=== PATIENT | female | born 1985 | race Caucasian/White ===

== ENCOUNTER 2022-05-09 09:26 | Outpatient (CLI) | payer OTHER, SELFPAY ==
--- NOTE | 2022-05-09 10:15 | CRLHL7_ITS ---
For Patients: As a result of the Century Cures Act, medical imaging exams and procedure reports are released immediately into your electronic medical record. You may view this report before your referring provider. If you have questions, please contact your health care provider. INDICATION: Evaluate anatomy. COMPARISON: none TECHNIQUE: Real time cuba scale imaging of the fetus was performed as well as color Doppler analysis of the umbilical vessels. FINDINGS: Sonographic imaging demonstrates a single living intrauterine gestation. Fetus demonstrates a regular cardiac rate of 136 beats per minute. Fetus has a vertex oblique position. The placenta lies anteriorly without evidence of placenta previa. The edge of the placenta is located 4.4 cm from the internal cervical os. Amniotic fluid volume appears normal. Single deepest vertical pocket: 5.8 cm. The cervix is closed and measures 6.0 cm in length. The composite ultrasound gestational age is calculated at 21 weeks 1 day with an estimated sonographic due date of 09/18/2022. The estimated weight is 401 grams which lies at the 76th %. The following biometric measurements were obtained: Biparietal diameter: 4.9 cm/20 weeks 6 days 60th% Head circumference: 18.3 cm/20 weeks 40 44th% Abdominal circumference: 16.4 cm/21 weeks 3 days 74th% Femur length: 3.5 cm/20 week 6 days 51st% The HC/AC ratio measures: 1.11 range (1.06-1.25) On anatomic survey, there is a normal appearance of the cerebral ventricles, cavum septi pellucidi, cisterna magna and cerebellum. The nose, lips, and facial profile appear normal. The cervical, thoracic and lumbar spine are well visualized and appear normal. There is a normal four-chamber heart view and the left and right ventricular outflow tracts appear normal. The diaphragm and stomach appear normal. The kidneys and bladder also appear normal. There is a normal three-vessel cord and cord insertion site. The four extremities appear normal. IMPRESSION: Normal OB ultrasound exam with concordance of clinical and sonographic dating. No intrinsic abnormalities noted on anatomic survey. Dictated by Winston Reese MD @ 05/09/2022 11:34:30 AM (Electronically Signed)
== END 2022-05-09 09:27 | disposition home or self-care (01) ==
PROVIDERS: Visit Provider Advanced Practice Midwife
DX: Z34.92 Encounter for supervision of normal pregnancy, unspecified, second trimester (principal); Z3A.20 20 weeks gestation of pregnancy
CPT/HCPCS: 76805

== ENCOUNTER 2022-07-02 09:46 | Outpatient (CLI) | payer OTHER, SELFPAY ==
[2022-07-03 19:50] LABS: Rapid Plasma Reagin (RPR) Non Reactive (Non Reactive)
== END 2022-07-02 09:47 | disposition home or self-care (01) ==
LOC: NFLDREF 09:47
PROVIDERS: Visit Provider Advanced Practice Midwife
DX: Z34.93 Encounter for supervision of normal pregnancy, unspecified, third trimester (principal); Z3A.28 28 weeks gestation of pregnancy
CPT/HCPCS: 86592

== ENCOUNTER 2022-08-27 10:42 | Outpatient (CLI) | payer OTHER, SELFPAY ==
[2022-08-28 13:22] LABS: Strep B DNA Probe POSITIVE (Negative); Strep B Pen/Amox Allergy No
== END 2022-08-27 10:43 | disposition home or self-care (01) ==
PROVIDERS: Visit Provider Advanced Practice Midwife
DX: Z34.93 Encounter for supervision of normal pregnancy, unspecified, third trimester (principal); Z3A.36 36 weeks gestation of pregnancy
CPT/HCPCS: 87081; 87653

== ENCOUNTER 2022-09-16 06:55 | Inpatient (IN) | payer OTHER, SELFPAY ==
[2022-09-16] VITALS (131 sets, daily range): BP systolic 79–133; BP diastolic 43–80; PULSE 48–134; RESP 16–18; TEMP 36.4–36.8; O2SAT 92–100; BMI 30.7
--- NOTE | 2022-09-16 07:48 | W.PM.LDBA ---
Subjective History of Present Illness Time Seen by Provider: 07:48 Date Seen: 09/16/22 Narrative: Sintia is being admitted to Labor and Delivery for IOL r/t history of DVT and heprin treatment. Pt's last dose of heprin was 24 hours ago. She is a 36 year old at 39 1/7 weeks gestation. Her full history and physical was dictated by Chantal Rodriguez CNM on 09/10/22. Please see this for details. Sintia is supported by her Franco. She is planning an epidural. Discussed options for cervidil or cytotec induction, pt agreeable to cytotec IOL. Encouraged ambulation, position changes and Labor Warm Up to promote optimal position and encourage physiologic labor and . Discussed TXA prophylaxis to decrease risk of PP hemorrhage, pt agreeable. Questions elicited and answered to pt's satisfaction. OB Problem list: 1. History of DVT, 2 months post leg surgery while on OCP's Started on Lovenox 40mg in early , will switch to Heparin at 36 weeks (prefers to have 1 week at a time with refills) Heparin ordered, BID. Starting at 36 weeks, 08/28/22. Hx of itching started after she started heparin. Restart Lovenox 12-24 hours post delivery No perinatology consult, declines (Was seeing OB at prior practice and had same plan with previous pregnancies) IOL recommended at 39 weeks, no additional monitoring indicated with hx of DVT: planning on 09/16/2022 2. History of Cholestasis with previous Sx started about 37 weeks, intense itching (last ) 3. UTI during , treated at 9 weeks [place]YN[place] 03/14/22, results not included in tx records 4. Pap 07/2021 NILM, +HPV Plan repeat 5. Hx vaccum assisted delivery d/t maternal fatique after >4 hours of pushing 6. GBS + Antibiotics, Ampicillin, recommended in labor COVID: declines Flu: declines 07/02/2022 TDAP: 05/15/2022: Records received and reviewed. -[facility] OB Labs: 02/14/2022 Blood type: O+, antibody screen negative. Hgb: 14.8 Platelets: 363 Rubella: immune RPR: non-reactive HBsAg: negative Hep C: negative HIV: negative GC/Chlamydia: negative/negative Cell Free DNA: negative TSH: 0.771 IMAGINst trimester: 02/14/2022. SIUP, LMP consistent with US. US NHI 09/18/2022. OB - H&P: Exam Physical Exam: Vital signs: Pulse BP Pulse Ox 108 H 118/80 97 09/16/22 07:28 09/16/22 07:28 09/16/22 07:28 Narrative: Exam: VSS, afebrile General Appearance:?Calm, cooperative. No acute distress. ? Psychiatric Exam: Alert and oriented, appropriate affect Lungs: CTA bilateraly Heart: RRR Abdomen: Gravid Extremities: no edema Ctx: ?no contractions, not in labor FHTs: ?Baseline: 135 ?Variability: Moderate ? Accels: Present ? ?Decels: ?absent SVE: Membranes: Intact ? Constitutional: Constitutional: no acute distress Routine HEENT Exam: Head: Present normocephalic Eye: Present normal appearance Routine Neck Exam: Neck: Present full ROM Routine Respiratory Exam: Respiratory: Present CTA bilaterally Routine Cardiovascular Exam: Cardiovascular: RRR Routine Exam: External: Present normal external exam Perineum Description: Normal Detailed Labor and Delivery Exam: Patient Gravid: yes Tachysystole: No Routine Extremities Exam: Extremities: Absent pedal edema Routine Back/Spine/Pelvis Exam: Back/Spine: full ROM Routine Skin Exam: Present intact, dry and warm Routine Neurological Exam: Present alert and oriented X3 Routine Psychiatric Exam: Present normal affect and normal thought process OB - Problem Based A/P Additional Plan (1) Encounter for supervision of other normal , third trimester: Status: Acute (2) History of DVT (deep vein thrombosis): Problem details: following femor fracture and OCP use Status: Acute (3) Prophylactic use of unfractionated heparin for venous thromboembolism (VTE): Problem details: Last dose >24 hours ago Status: Acute Plan ASSESSMENT:? 36 at 39 1/7 weeks gestation? complicated by:?History of DVT, Heparin prophylaxis - last dose >24 hours ago Labor type: IOL, not in labor? Category 1 FHR pattern, baseline 135, moderate variability, accels present, decels absent Labor complicated by: recent heparin use? GBS positive? PLAN:? 1. IOL per Cytotec protocol, PV q4 hours 2. Monitoring per policy, continuous? 3. Planning Epidural. Candidate for analgesia of choice.?? 4. Patient encouraged to reposition and ambulate to promote physiologic labor and . Labor warm up circuit encouraged.? 5. IV start, saline lock. 6. IV antibiotics per GBS protocol 7. TXA prophylaxis ~30 min prior to 8. Anticipate progress to active labor and ? ? Delivery/Labor/Induction Plan Plan: induction Induction method: per misoprostol protocol
[2022-09-16 08:49] LABS: Basophils Absolute Auto 0.04 K/uL (0.00-0.30); Basophils Percent Auto 0.4 % (0.0-3.0); Eosinophils Absolute Auto 0.13 K/uL (0.00-0.50); Eosinophils Percent Auto 1.2 % (0.0-7.0); Hemoglobin* 13.4 gm/dL (12.0-16.0); Immature Granulocytes Abs Auto 0.31 K/uL (0.00-0.30); Immature Granulocytes Pct Auto 2.8 %; Lymphocytes Percent Auto 16.1 % (20-44); Mean Corpuscular HGB Conc 35 gm/dL (32-36); Mean Corpuscular Hemoglobin 33 pg (26-34); Mean Corpuscular Volume 94 fL (80-100); Monocytes Percent Auto 7.9 % (0.0-11.0); Neutrophils Absolute Auto 7.84 K/uL (1.7-7.0); Neutrophils Percent Auto 71.6 % (42.0-72.0); Platelet Count* 218 K/uL (140-440); RDW Coefficient of Variation % 11.9 % (11.5-15.5); Red Blood Count 4.05 m/uL (4.00-5.20); White Blood Count* 10.94 K/uL (4.50-11.00)
[2022-09-16 08:50] LABS: Slide Review Reflex No
[2022-09-16] MEDS: miSOPROStoL 25 MCG/0.25 TABLET VAGINAL ×2 (09:06→13:09)
[2022-09-16 09:24] LABS: SARS PCR* Negative SARS-CoV-2 (Negative)
[2022-09-16] MEDS: LACTATED RINGERS 1000 ML 1,000 ML 1200 ML IV ×3 (17:24→20:00)
--- NOTE | 2022-09-16 17:29 | PM.OBPNL ---
Subjective Time Seen by Provider: 17:29 Date Seen: 09/16/22 Narrative: Subjective:? Sintia is not coping well with labor pain/contractions. She is crying and very agitated with contractions. Sintia stated she is ready for the epidural as soon as posible. She is currently being supported by her Franco.?After SVE with minimal change, but continued intense feeling of contractions, Sintia was very upset and fearful that this labor would be as long as her first induction which lasted 3 days. Reassurance given that this is a different labor and , her body has done this before, and we are all here to support her and get her through the hard parts. Questions answered to her satisfaction. ?She would like to get an epidural as soon as possible for comfort and pain management.?? Objective Exam: Objective: VSS, afebrile General Appearance:?Upset, crying, agitated with contractions, cooperative. ? Psychiatric Exam: Alert and oriented, appropriate affect Abdomen: Gravid Ctx: ?Q 2 min apart. Moderate FHTs: ?Baseline: 135? Variability: Moderate ? Accels: Present ? ?Decels: ?Occasional variables with good return to baseline SVE: 3cm/60%/-2 Membranes: Intact? Vital Signs: Last Vital Signs Temp 98.3 F 09/16/22 16:51 Pulse 100 09/16/22 16:51 Resp 18 09/16/22 16:51 BP 120/79 09/16/22 16:51 Pulse Ox 96 09/16/22 11:55 Plan Plan: Plan ASSESSMENT:? 36 at 39 1/7 weeks gestation? complicated by:? History of DVT Heparin prophylaxis - last dose >24 hours ago Labor type: IOL, Early Labor Category 2 FHR pattern Labor complicated by:? recent heparin use? GBS positive? PLAN:? 1. Hold cytotec until epidural placed, then reassess 2. Monitoring per policy, continuous? 3. Planning Epidural, call to anesthesia placed 4. IV antibiotics per GBS protocol 5. TXA prophylaxis ~30 min prior to 6. Anticipate progress to active labor and ?
[2022-09-16] MEDS: AMPICILLIN 2 GM in 0.9 % SODIUM CHLORIDE Mini-bag 100 ML IVPB (17:59)
[2022-09-16 18:02] LABS: Partial Thromboplastin Time* 28 Seconds (23-33)
[2022-09-16] MEDS: LIDOCAINE 2% (PF) 5 ML VIAL EPIDURAL (18:19)
[2022-09-16] MEDS: fentaNYL 250 MCG/5 ML inj 100 MCG EPIDURAL (18:30)
[2022-09-16] MEDS: ROPIVACAINE 0.2% 100 ml 100 ML 12 MG EPIDURAL (18:34)
[2022-09-16] MEDS: PHENYLEPHRINE 100 MCG/ML SYRINGE IVP ×5 (18:39→19:59)
--- NOTE | 2022-09-16 18:44 | PM.ANBPRC ---
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 [place] Lives with: Garbiel Gamez (2) Pets: dog Abuse: Denies past/present Special Diet: Denies Ok with a blood transfusion: yes Culture or moravian beliefs: denies RISK FACTORS Exercise Times/wk: Beach body workout or running 4-5x/week Depression/Anxiety: denies ARMIDA: 0 PHQ 9: 0 Seat Belt Use: Routinely Smoking: Denies past/present Alcohol/day: Denies while , occasional Caffeine: none Drug Use: Denies past/present Chicken Pox: Yes as a child MRSA: Denies Smoking Status: Never smoker Little interest or pleasure in doing things: not at all Feeling down, depressed, or hopeless: not at all Meds Home Medications and Allergies Home Medications Medication Instructions Recorded Confirmed Type cholecalciferol (vitamin D3) 125 125 mcg PO QDAY 05/09/22 09/16/22 History mcg (5,000 unit) capsule prenat.vits,jakob,vkh-mstc-avmod 1 tab PO QDAY 05/09/22 09/16/22 History heparin (porcine) 10,000 unit/mL 10,000 unit subcut ONCE 08/27/22 09/16/22 History injection solution Allergies Allergy/AdvReac Type Severity Reaction Status Date / Time No Known Drug Allergies Allergy Verified 09/10/22 10:19 Results Labs Labs: Laboratory Results - last 24 hr 09/16/22 09/16/22 09/16/22 08:09 08:15 08:20 WBC 10.94 RBC 4.05 Hgb 13.4 Hct 38.0 MCV 94 MCH 33 MCHC 35 RDW Coeff of Rose 11.9 Plt Count 218 Neut % (Auto) 71.6 Lymph % (Auto) 16.1 L [place] % (Auto) 7.9 Eos % (Auto) 1.2 Baso % (Auto) 0.4 Neut # (Auto) 7.84 H Lymph # (Auto) 1.80 [place] # (Auto) 0.90 Eos # (Auto) 0.13 Baso # (Auto) 0.04 APTT SARS-CoV-2 (PCR) Negative SARS-CoV-2 Blood Type O Positive Antibody Screen NEGATIVE 09/16/22 17:29 WBC RBC Hgb Hct MCV MCH MCHC RDW Coeff of Rose Plt Count Neut % (Auto) Lymph % (Auto) [place] % (Auto) Eos % (Auto) Baso % (Auto) Neut # (Auto) Lymph # (Auto) [place] # (Auto) Eos # (Auto) Baso # (Auto) APTT 28 SARS-CoV-2 (PCR) Blood Type Antibody Screen Vital Signs Vital Signs: Last Vital Signs Temp 98.3 F 09/16/22 16:51 Pulse 106 H 09/16/22 18:42 Resp 18 09/16/22 16:51 BP 106/63 09/16/22 18:42 Pulse Ox 99 09/16/22 18:40 Weight: 76.204 kg Height: 157.48 cm Anesthesia Procedures Epidural Insertion Start Time: 18:00 Stop Time: 19:00 Start Date: 09/16/22 Stop Date: 09/16/22 Reason for Block: primary anesthetic Patient Position: sitting Performed By: Kaveh Ann Preanesthetic Checklist: IV checked, risks and benefits discussed, monitors and equipment checked, pre-op evaluation and anesthesia consent Prep: chlorhexidine gluconate Monitoring: blood pressure monitoring, continuous pulse oximetry and heart rate Approach: midline Vertebral Space: lumbar (1-5) Epidural Technique: ALIN saline Needle Type: Tuohy needle Injection Technique: continuous catheter Needle gauge: 17 Needle Length (cm): 10 cm Needle Insertion Depth (cm): 6 Catheter Gauge: 19 Catheter Type: multi-orifice Catheter at skin depth (cm): 9 Test Dose Result: negative and lidocaine 1.5% with epinephrine 1 to 200,000
[2022-09-16] MEDS: ePHEDrine sulfate 5 MG/ML inj 10 MG IVP (18:50)
[2022-09-16] MEDS: TRANEXAMIC ACID 100 MG/ML INJ 1000 MG IV (20:52)
[2022-09-16] MEDS: ONDANSETRON 2 MG/ML inj 4 MG IV (21:15)
[2022-09-16] MEDS: OXYTOCIN 30 unit/500 ML in NS 30 UNIT/500 ML BAG 300 UNIT IVPB (21:45)
[2022-09-16] MEDS: METHYLERGONOVINE MALEATE 0.2 MG/ML INJ IM (21:49)
--- NOTE | 2022-09-16 22:24 | PM.OBPRCVD ---
Documented by User: Nori Morales CNM 09/16/22 23:05 Procedure Delivery date: 09/16/22 Procedure Done: Global Procedure Details: Sintia is a 36 year-old G2 now ?P2 admitted on 09/16/22 at 39 Weeks,1 Days gestation for IOL r/t hx of DVT and recent heparin use. Cervical exam on admission was 1 cm/30 % effaced/-3 station with membranes intact in vertex presentation.? SROM occurred at 184 with clear fluid. Labor Analgesia:? Epidural Pitocin:? No, PP only for AMTSL Labor onset:? 1855 Complete: 2043 Pushing:? 2110 heart tones during second stage were: baseline of 125 with pushing, baseline shift to 105 with . Called to room, Sintia feeling increased pressure, found to be complete and +1 station. Sintia pushed with good effort in semi-reclined position in bed. Comfortable with epidural, supported by her Franco and her mother. At 2142 a viable? male infant delivered in vertex OA presentation over intact perineum via spontaneous vaginal?delivery. ?Infant was placed on maternal abdomen. ?Cord was clamped and cut after a 2+ minutes delay.? Infant weight pending. ? 8 at 1 minute and 9 at 5 minutes. ?Shoulder dystocia: no. ?Nuchal cord: no. Placenta delivered spontaneously and complete at 2153 with a 3 vessel cord. Mother and were stable after?delivery. Lacerations:? 1st degree vaginal, repaired with 3-0 vicryl.? Blood loss: 400 mL. Blood loss measurement type: QBL? Sponge and needles counts are correct. Events: Other (Hx of DVT, on Lovenox/Heparin prior to delivery) Intrapartal Events: Labor Induction Induction method: per misoprostol protocol Delivery monitor: external FHT and external uterine Route of delivery: Laceration description: Vaginal - 1st Degree Delivery repair: Vicryl (3.0) Estimated blood loss (mL): 400 (QBL) Anesthesia type: Epidural Disposition: floor Infant Gender: Male presentation: vertex Placental Delivery Description: Spontaneous Cord Description: 3 Vessels OB Vag Delivery Procedures Additional Procedures ECV: No Cook Catheter Insertion: No NST: No D&C: No Laceration Repair: Yes (3.0 vycril) Tubal Ligation : No Other: No Documented by User: Sia Young CNM 09/16/22 23:50 Procedure Procedure Details: Sintia is a 36 year-old G2 now ?P2 admitted on 09/16/22 at 39 Weeks,1 Days gestation for IOL r/t hx of DVT and recent heparin use. Cervical exam on admission was 1 cm/30 % effaced/-3 station with membranes intact in vertex presentation.? SROM occurred at 1845 with clear fluid. Labor Analgesia:? Epidural Pitocin:? No, PP only for AMTSL Labor onset:? 1855 Complete: 2043 Pushing:? 2110 heart tones during second stage were: baseline of 125 with pushing, baseline shift to 105 with . Called to room, Sintia feeling increased pressure, found to be complete and +1 station. Sintia pushed with good effort in semi-reclined position in bed. Comfortable with epidural, supported by her Franco and her mother. At 2142 a viable? male delivered in vertex OA presentation over intact perineum via spontaneous vaginal?delivery. ?Infant was placed on maternal abdomen. ?Cord was clamped and cut after a 2+ minutes delay.? Infant weight pending. ? 8 at 1 minute and 9 at 5 minutes. ?Shoulder dystocia: no. ?Nuchal cord: no. Brisk bleeding noted shortly after delivery of infant. Pitocin IV started. TXA given prior to pushing. Cord clamped and cut, but unable to deliver the placenta at that time. Methergine given IM, and bleeding noted to have slowed. Placenta delivered spontaneously and complete at 2153 with a 3 vessel cord. Mother and infant were stable after?delivery. Lacerations:? 1st degree vaginal, repaired with 3-0 vicryl.? Blood loss: 400 mL. Blood loss measurement type: QBL? Sponge and needles counts are correct.
[2022-09-17 00:02] VITALS: BP 109/63; PULSE 86
[2022-09-17] MEDS: ACETAMINOPHEN 500 MG TABLET 1000 MG PO ×2 (01:09→17:02)
[2022-09-17 03:57] VITALS: BP 103/65; PULSE 88; RESP 16; TEMP 36.7; O2SAT 96
[2022-09-17] MEDS: LANOLIN CREAM 1 APPLIC TOPICAL (04:10)
[2022-09-17] MEDS: IBUPROFEN 600 MG TABLET PO ×3 (07:09→19:30)
[2022-09-17 07:25] VITALS: BP 101/67; PULSE 75; RESP 16; TEMP 36.4; O2SAT 94
--- NOTE | 2022-09-17 08:58 | PM.OBPNVD1 ---
OB - PN:Subj Subjective Date Seen: 09/17/22 Patient comments OB post-: no complaints, pain well controlled and tolerating diet infant status: and doing well feeding status: exclusively Narrative: Day 1:? Vaginal Delivery at 39 and 1/7 weeks.? ?? Complications:? Post . Doing well.? The patient feels well.? The pain is well controlled with current medications.? She has no new complaints.? Urinary output is adequate and she is voiding without difficulty.? Has a good appetite, is tolerating a general diet, is passing flatus, and has not had a bowel movement.? Has?small amount of rubra lochia.? She is ambulating well.? and feels that it is going well so far. She may consider going home late tonight but unsure. Will let me know if she decides to go home. Delivery time was just a few minutes short of 4 hours after antibiotics so also dependent on pediatric approval for baby discharge. OB - PN: Obj Exam Physical Exam: Vital signs: Temp Pulse Resp BP Pulse Ox O2 Del Method 97.5 F L 75 16 101/67 94 09/17/22 07:25 09/17/22 07:25 09/17/22 07:25 09/17/22 07:25 09/17/22 07:25 09/17/22 07:25 Narrative: GENERAL APPEARANCE:? normal affect, alert, no distress? MOOD:? appropriate? CHEST:? clear to auscultation and percussion? HEART:? regular rate and rhythm? ABDOMEN:? soft, non-tender the uterine fundus is?firm, U/1 and is appropriate for the stage of recovery.? PERINEUM:? mild edema of the perineum, there is a?1st degree laceration that is healing well.? EXTREMITIES:? normal and no edema? OB - PN: Obj Data Labs Labs: Laboratory Results - last 24 hr 09/16/22 09/16/22 09/16/22 08:15 08:20 17:29 APTT 28 SARS-CoV-2 (PCR) Negative SARS-CoV-2 Blood Type O Positive Antibody Screen NEGATIVE OB - PN: A/P Vaginal Delivery Assessment and Plan (1) History of DVT (deep vein thrombosis): Problem details: following femor fracture and OCP use Status: Acute (2) Prophylactic use of unfractionated heparin for venous thromboembolism (VTE): Problem details: Last dose >24 hours ago Status: Acute (3) care following vaginal delivery: Status: Acute (4) care and examination of lactating mother: Status: Acute Plan 36 year old on day 1.? 1. cares.? 2. Anticipate discharge tomorrow.? Plan day: 1 Plan: routine care
[2022-09-17] MEDS: DOCUSATE SODIUM 100 MG CAPSULE PO (11:41)
[2022-09-17 11:42] VITALS: BP 91/56; PULSE 87; RESP 16; TEMP 36.3; O2SAT 96
[2022-09-17 16:50] VITALS: BP 104/64; PULSE 76; RESP 16; TEMP 36.7; O2SAT 96
[2022-09-17] MEDS: ENOXAPARIN 40 MG/0.4 ML INJ SUBCUT (21:31)
[2022-09-18] MEDS: ACETAMINOPHEN 500 MG TABLET 1000 MG PO ×2 (00:51→08:25)
[2022-09-18] MEDS: IBUPROFEN 600 MG TABLET PO (04:14)
[2022-09-18 04:15] VITALS: BP 97/64; PULSE 60; RESP 16; TEMP 36.6; O2SAT 96
--- NOTE | 2022-09-18 07:16 | PM.OBDSVD1 ---
DS: Providers Provider Time Seen by Provider: 07:16 Date Seen: 09/18/22 Date of admission: 09/16/22 06:55 Primary care physician: Not a Local Provider Admitting Clinician: Nori Morales CNM Attending Physician on discharge: Nori Morales CNM Date of Discharge: 09/18/22 DS: Diagnosis Discharge Diagnosis (1) state: Status: Acute (2) Lactating mother: Status: Acute (3) History of DVT (deep vein thrombosis): Status: Acute Problem details: following femor fracture and OCP use Exam Narrative: Exam Narrative: VSS, afebrile GENERAL APPEARANCE: ?normal affect, alert, no distress MOOD: ?appropriate HEENT: normocephalic, neck supple, full ROM CHEST: ?Symmetrical chest wall movement. ?Normal respiratory effort. ?Clear to auscultation HEART: ?regular rate and rhythm ABDOMEN: ?soft, non-tender. Uterine fundus is firm, 1 above Umbilicus (bladder full), Midline and is appropriate for the stage of recovery. ?Bowel sounds present. PERINEUM: ?mild edema of the perineum, there is a 1st degree vaginal laceration that is healing well. EXTREMITIES: ?normal and no edema Const: Vital Signs, click to edit/add: Vital Signs - 24 hr 09/17/22 07:25 09/17/22 11:42 09/17/22 16:50 Temperature 97.5 F L 97.4 F L 98.1 F Pulse Rate [Pulse Oximeter] 75 87 76 Respiratory Rate 16 16 16 Blood Pressure [Le ft Arm] 101/67 91/56 L 104/64 Pulse Oximetry 94 96 96 Oxygen Delivery Me thod Room Air Room Air Room Air 09/18/22 04:15 Temperature 97.8 F Pulse Rate [Pulse Oximeter] 60 Respiratory Rate 16 Blood Pressure [Le ft Arm] 97/64 Pulse Oximetry 96 Oxygen Delivery Me thod Room Air Documenting provider has reviewed patient's vital signs: yes OB - DS: Summary Hospital Course Hospital Course: Sintia is a 36 year old G 2 P 2 at 39 2/7 weeks gestation that was admitted to the Center on 09/16/22 for IOL. She had an uncomplicated vaginal delivery. She delivered a viable male . The patient feels well. ?The pain is well controlled with current medications. ?She has no new complaints. ?She is breast feeding and reports things are going well.? the patient has done well.? Vitals have been stable.? She has remained afebrile.? Has a good appetite, is tolerating a general diet. ?She is voiding without difficulty.? She is passing gas and has not had a bowel movement.? She is ambulating and denies any dizziness.? Has small amount of rubra lochia. ?She is planning condoms and later partner's vasectomy for prevention. Pt declined prescriptions, prefers to use her own medications from home. Problems: G2 now P2 Lactating Mother History of DVT, restarted Lovenox prophylaxis 24 hours after delivery plan: Discharge home with baby. Follow up in 2 weeks and 6 weeks. , may follow up with if needed Peripartum Data Infant delivery method: Vaginal Laceration description: Vaginal - 1st Degree complications: none [place] Infant Gender: Male Discharge Plan: Home Status at Discharge Functional status at discharge: independent ambulation Overall status at discharge: patient is progressing back to baseline Time Spent with Patient Time attestation: Total time spent providing and/or coordinating discharge services: Time spent: Less than 30 minutes Discharge Plan Discharge Disposition: Home, Self-Care Date of Admission: 09/16/22 06:55 Attending Provider on Discharge: Nori Morales Primary Care Provider: Provider,Not a Local Condition: Stable Anticipated Discharge Date/Time: 09/18/22 07:26 Discharge Medications: New acetaminophen 500 mg Tablet 1,000 mg PO Q6H PRNQty: 0 0RF docusate sodium 100 mg Capsule 100 mg PO DAILY Qty: 0 0RF enoxaparin 40 mg/0.4 mL Syringe 40 mg subcut Q24H Qty: 0 0RF Continued prenat.vits,jakob,stw-fgvv-vcqzm Tablet 1 tab PO QDAY cholecalciferol (vitamin D3) 125 mcg (5,000 unit) capsule 125 mcg PO QDAY heparin (porcine) 10,000 unit/mL solution 10,000 unit subcut Q12H Qty: 14 4RF (DME) insulin syringe-needle U-100 [[facility] Syringes] 1 mL 30 gauge x 5/16 syringe See Rx Instructions .Route Qty: 14 3RF Rx Instructions: As directed Discontinued heparin (porcine) 10,000 unit/mL solution 10,000 unit subcut ONCE Discharge Orders: Discharge Order (Routine); Ordered 09/18/22 Ordered By: Nori Morales Patient Education: OB Over the Counter Medication Information, OB Vaginal/Breast Feeding Activity Level: Activity as Tolerated Discharge Diet: Regular Follow Up Appointments: Provider,Not a Local [Primary Care Provider] - [facility] Inst[facility]
[2022-09-18 08:29] VITALS: BP 100/66; PULSE 82; RESP 16; TEMP 36.3; O2SAT 96
== END 2022-09-18 10:35 | disposition home or self-care (01) | DRG 807 ==
PROVIDERS: Nurse Anesthetist, Certified Registered; Admitting Provider Advanced Practice Midwife; Visit Provider Advanced Practice Midwife
DX: O99.824 Streptococcus B carrier state complicating childbirth (principal); Z37.0 Single live birth; O70.0 First degree perineal laceration during delivery; Z79.01 Long term (current) use of anticoagulants; Z86.718 Personal history of other venous thrombosis and embolism; Z3A.38 38 weeks gestation of pregnancy
CPT/HCPCS: 01967; 36415; 85025; 85730; 86850; 86900; 86901; 87635; A9270; J0290; J1650; J2210; J2370; J2405; J2795; J3010; J7120

== ENCOUNTER 2023-04-22 15:00 | Outpatient (RCR) | payer OTHER, SELFPAY | END 2023-08-20 23:59 | disposition home or self-care (01) | PROVIDERS: PCP Advanced Practice Midwife; Visit Provider Advanced Practice Midwife | DX: Z39.2 Encounter for routine postpartum follow-up (principal); N81.89 Other female genital prolapse; R27.8 Other lack of coordination; N39.3 Stress incontinence (female) (male); K59.00 Constipation, unspecified; Z51.89 Encounter for other specified aftercare | CPT/HCPCS: 97110; 97112; 97140; 97161; 97535 ==

== ENCOUNTER 2024-03-10 08:30 | Outpatient (CLI) | payer OTHER, SELFPAY | END 2024-03-10 08:31 | disposition home or self-care (01) | LOC: NFLDREF 03-12 11:23 | PROVIDERS: PCP Advanced Practice Midwife; Referring Provider Advanced Practice Midwife; Visit Provider Physician Assistant Medical | DX: L65.9 Nonscarring hair loss, unspecified (principal) | CPT/HCPCS: 82728; 84443 ==

== ENCOUNTER 2024-05-03 13:31 | Outpatient (CLI) | payer OTHER, SELFPAY ==
[2024-05-03 14:33] LABS: Vitamin D 25 Hydroxy* 57 ng/mL (30-80)
== END 2024-05-03 13:32 | disposition home or self-care (01) ==
LOC: LAB 13:32
PROVIDERS: PCP Advanced Practice Midwife; Visit Provider Physician Assistant
DX: E55.9 Vitamin D deficiency, unspecified (principal)
CPT/HCPCS: 36415; 82306